=== PATIENT | male | born 1950 | race Caucasian/White ===

== ENCOUNTER 2018-08-01 13:08 | Outpatient (REF) | payer MEDICARE, SELFPAY ==
[2018-08-01 13:48] LABS: Anion Gap 6.7 mmol/L (3-11); BUN 23 mg/dL (7-18); CO2 30.3 mmol/L (21.0-32.0); CREATININE 1.22 mg/dL (0.70-1.30); Calcium 9.3 mg/dL (8.5-10.1); Chloride 102 mmol/L (98-107); Estimated GFR 59.25 (mL/min/1.73m2); Glucose 88 mg/dL (70-100); Potassium 5.1 mmol/L (3.5-5.1); Sodium 139 mmol/L (136-145)
== END 2018-08-01 13:28 ==
LOC: NCHCN 13:08
PROVIDERS: PCP Nurse Practitioner Family; Visit Provider Nurse Practitioner Family
DX: B37.2 Candidiasis of skin and nail (principal); E78.5 Hyperlipidemia, unspecified; I10 Essential (primary) hypertension; F10.10 Alcohol abuse, uncomplicated
CPT/HCPCS: 80048

== ENCOUNTER 2019-03-06 09:34 | Outpatient (REF) | payer MEDICARE, SELFPAY ==
[2019-03-06 12:53] LABS: BUN 21 mg/dL (7-18); CREATININE 1.05 mg/dL (0.70-1.30); Calculated LDL 233 mg/dL; Chloride 105 mmol/L (98-107); Cholesterol 308 mg/dL (50-200); Glucose 99 mg/dL (70-100); HDL Cholesterol 44 mg/dL (40-60); Potassium 4.5 mmol/L (3.5-5.1); Sodium 141 mmol/L (136-145); Triglyceride 156 mg/dL (30-150)
[2019-03-07 10:46] LABS: Hepatitis C Ab w Rflx HCV PCR Negative (NEGAT)
[2019-03-07 11:51] LABS: Lyme Ab w Rflx to Lyme Confirm Negative
== END 2019-03-06 09:54 ==
LOC: NCHCN 09:34
PROVIDERS: PCP Nurse Practitioner Family; Visit Provider Nurse Practitioner Family
DX: E78.5 Hyperlipidemia, unspecified (principal); I10 Essential (primary) hypertension; Z11.59 Encounter for screening for other viral diseases; W57.XXXA Bitten or stung by nonvenomous insect and other nonvenomous arthropods, initial encounter; T14.8XXA Other injury of unspecified body region, initial encounter
CPT/HCPCS: 80048; 80061; 83721; 86803; 87798; 86618

== ENCOUNTER 2019-07-24 08:38 | Outpatient (REF) | payer MEDICARE, SELFPAY ==
[2019-07-24 12:32] LABS: ALT 37 U/L (16-63); AST 34 U/L (15-37); Albumin 3.7 g/dL (3.4-5.0); Alkaline Phosphatase 66 U/L (46-116); Anion Gap 7.9 mmol/L (3-11); BUN 22 mg/dL (7-18); Bilirubin, Total 0.6 mg/dL (0.2-1.0); CO2 30.1 mmol/L (21.0-32.0); CREATININE 1.13 mg/dL (0.70-1.30); Calculated LDL 108 mg/dL; Chloride 104 mmol/L (98-107); Cholesterol 182 mg/dL (<200); Glucose 85 mg/dL (74-106); HDL Cholesterol 46 mg/dL (40-60); Potassium 4.9 mmol/L (3.5-5.1); Sodium 142 mmol/L (136-145); Triglyceride 143 mg/dL (30-150)
== END 2019-07-24 08:58 ==
LOC: NCHCN 08:38
PROVIDERS: PCP Nurse Practitioner Family; Visit Provider Nurse Practitioner Family
DX: E78.5 Hyperlipidemia, unspecified (principal)
CPT/HCPCS: 80053; 80061

== ENCOUNTER 2020-07-21 10:53 | Outpatient (REF) | payer MEDICARE, SELFPAY ==
[2020-07-21 21:48] LABS: ALT 35 U/L (16-63); AST 33 U/L (15-37); Albumin 4.1 g/dL (3.4-5.0); Alkaline Phosphatase 74 U/L (46-116); Anion Gap 8.5 mmol/L (3-11); BUN 22 mg/dL (7-18); Bilirubin, Total 0.5 mg/dL (0.2-1.0); CO2 27.5 mmol/L (21.0-32.0); CREATININE 1.23 mg/dL (0.70-1.30); Chloride 104 mmol/L (98-107); Estimated GFR 58.34 (mL/min/1.73m2); Glucose 99 mg/dL (74-106); Potassium 4.6 mmol/L (3.5-5.1); Sodium 140 mmol/L (136-145); Total Protein 7.4 g/dL (6.4-8.2)
== END 2020-07-21 11:13 ==
LOC: NCHCN 10:53
PROVIDERS: PCP Nurse Practitioner Family; Visit Provider Nurse Practitioner Family
DX: E78.5 Hyperlipidemia, unspecified (principal); I10 Essential (primary) hypertension
CPT/HCPCS: 80053

== ENCOUNTER 2020-12-01 11:12 | Outpatient (CLI) | payer MEDICARE, SELFPAY ==
--- NOTE | 2020-12-01 14:19 | DI.RAD_ITS ---
EXAM: XR FOOT LT COMPLETE CLINICAL HISTORY: LT TOE PAIN, M79.675. TECHNIQUE: 2D digital imaging was performed. COMPARISON: No exams were available for comparison FINDINGS: There is no evidence of fracture or diastasis of the Lisfranc joint. No radiopaque foreign body. No osseous lesions. Bone density is normal. IMPRESSION: No significant radiographic findings in the left foot. DATA REPOSITORY: RADIATION DOSE DELIVERED:
== END 2020-12-01 11:32 ==
PROVIDERS: PCP Nurse Practitioner Family; Visit Provider Family Medicine
DX: M79.675 Pain in left toe(s) (principal)
CPT/HCPCS: 73630

== ENCOUNTER 2020-12-01 14:26 | Outpatient (CLI) | payer MEDICARE, SELFPAY ==
[2020-12-01 14:55] LABS: C-Reactive Protein 0.14 mg/dL (0.0-0.3); Uric Acid 7.7 mg/dL (3.5-7.2)
[2020-12-01 17:42] LABS: Anion Gap 6.5 mmol/L (3-11); BUN 26 mg/dL (7-18); CO2 30.5 mmol/L (21.0-32.0); CREATININE 1.4 mg/dL (0.70-1.30); Calcium 9.5 mg/dL (8.5-10.1); Chloride 104 mmol/L (98-107); Estimated GFR 50.25 (mL/min/1.73m2); Glucose 102 mg/dL (74-106); Potassium 5.1 mmol/L (3.5-5.1); Sodium 141 mmol/L (136-145)
== END 2020-12-01 14:27 | disposition home or self-care (01) ==
LOC: NCHCO 14:26 → NCHCN 19:17
PROVIDERS: PCP Nurse Practitioner Family; Visit Provider Family Medicine
DX: M79.675 Pain in left toe(s) (principal)
CPT/HCPCS: 36415; 80048; 84550; 86140

== ENCOUNTER 2021-07-21 08:52 | Outpatient (REF) | payer MEDICARE, SELFPAY ==
[2021-07-21 14:51] LABS: ALT 31 U/L (16-63); AST 28 U/L (15-37); Albumin 3.6 g/dL (3.4-5.0); Alkaline Phosphatase 82 U/L (46-116); Anion Gap 5.2 mmol/L (3-11); BUN 20 mg/dL (7-18); Bilirubin, Total 0.6 mg/dL (0.2-1.0); CO2 31.8 mmol/L (21.0-32.0); CREATININE 1.1 mg/dL (0.70-1.30); Chloride 105 mmol/L (98-107); Glucose 87 mg/dL (74-106); Potassium 5.1 mmol/L (3.5-5.1); Sodium 142 mmol/L (136-145)
== END 2021-07-21 08:53 | disposition home or self-care (01) ==
LOC: NCHCN 08:52
PROVIDERS: PCP Nurse Practitioner Family; Visit Provider Nurse Practitioner Family
DX: I10 Essential (primary) hypertension (principal); E78.5 Hyperlipidemia, unspecified; N28.9 Disorder of kidney and ureter, unspecified
CPT/HCPCS: 80053

== ENCOUNTER 2022-07-19 15:39 | Outpatient (REF) | payer MEDICARE, SELFPAY ==
[2022-07-19 15:08] LABS: Anion Gap 3.9 mmol/L (3-11); BUN 26 mg/dL (7-18); CO2 32.1 mmol/L (21.0-32.0); CREATININE 1.2 mg/dL (0.70-1.30); Calcium 9.1 mg/dL (8.5-10.1); Chloride 104 mmol/L (98-107); Estimated GFR 64.65 (mL/min/1.73m2); Glucose 90 mg/dL (74-106); Potassium 4.7 mmol/L (3.5-5.1); Sodium 140 mmol/L (136-145)
== END 2022-07-19 15:40 | disposition home or self-care (01) ==
LOC: NCHCN 15:39
PROVIDERS: PCP Nurse Practitioner Family; Visit Provider Nurse Practitioner Family
DX: I10 Essential (primary) hypertension (principal); E78.5 Hyperlipidemia, unspecified; N28.9 Disorder of kidney and ureter, unspecified; K30 Functional dyspepsia
CPT/HCPCS: 80048

== ENCOUNTER → 2023-04-20 01:11 | Outpatient (CLI) | payer MEDICARE, SELFPAY ==
--- NOTE | 2023-04-20 07:30 | DI.US_ITS ---
APPROVED REPORT EXAM: Comprehensive 2D, Doppler, and color-flow Echocardiogram Patient Location: Out-Patient Press Set Up Person: Ncikie Meneses RDCS (AE) Indications: Ascending aortic aneurysm, Traumatic dissection of aorta Other Information Study Quality: Adequate Conclusion Normal left ventricular wall thickness and chamber size. Ejection fraction is 60%. Wall motion is n ormal Normal right ventricular size and systolic function Left atrium is mildly dilated. Right atrial size is normal Trileaflet aortic valve without stenosis or regurgitation Normal mitral valve with mild regurgitation Normal tricuspid valve with trace to mild regurgitation. Estimated right ventricular systolic pressu re is 32 mmHg Dilated ascending aorta measuring 3.96 cm Wall motion Left Ventricle The left ventricle is normal size. The left ventricular systolic function is normal. The left ventric ular ejection fraction is within the normal range. There is normal left ventricular wall thickness. T here is normal LV segmental wall motion. There is no ventricular septal defect visualized. LVEF is 60 %. Right Ventricle The right ventricle is normal size. The right ventricular systolic function is normal. Atria Left atrium is mildly dilated. The right atrium size is normal. The interatrial septum is intact with no evidence for an atrial septal defect. Aortic Valve The aortic valve is normal in structure. Aortic valve is trileaflet. There is no aortic valvular sten osis. No aortic regurgitation is present. Mitral Valve The mitral valve is normal in structure. No evidence of mitral valve stenosis. Mild mitral regurgitat ion. Tricuspid Valve The tricuspid valve is normal in structure. There is no tricuspid valve stenosis. Trace to mild tricu spid regurgitation. The RVSP is 32.4mmHg. Pulmonic Valve The pulmonary valve is normal in structure. There is no pulmonic valvular stenosis. Trace pulmonic re gurgitation. Great Vessels The aortic root is normal in size. The ascending aorta is moderately dilated. Aortic arch is normal in caliber. IVC is normal in size and collapses >50% with inspiration. Pericardium There is no pericardial effusion. 2D Dimensions IVSD d PLAX 1.15 cm M: 0.6-1.2 LVPW d PLAX 1.11 cm M: 0.6 - 1.2 LVID d PLAX 4.43 cm M: 4.2 - 5.8 LVDs 3.10 cm M: 2.5 - 4.0 Ao Root d 3.18 cm M: 3.1 - 3.7 RA Area A4C 13.74 cm2 Ao Asc Diam d 3.96 cm M: 2.6 - 3.4 LV EF Solitarioichbob 57.2 % FS 29.85 % M-Mode TAPSE 2.31 cm (M/F) >1.7 LV Diastology MV E' medial 0.082 (>0.07 m/s) E/A Ratio 1.4 LV E/e MED 10.24 (<14) MV E Vmax 0.84 (0.4-1.3 m/s) MV E' lateral 0.097 (>0.1 m/s) MV A Vmax 0.60 (0.4-1.3 m/s) LV E/e LAT 8.66 (<14) MV E/E' medial 10.24 MV E/E' lateral 8.66 MV (E/E' average) 9.38 Aortic Valve LVOT Vmax 1.16 m/s AoV Area Vmax 2.48 cm2 LVOT Peak Grad 5.4 mmHg LVOT Mean Grad 2.6 mmHg LVOT Diam s 2.00 cm AoV Vmax 1.50 m/s Velocity Ratio 0.77 AoV Peak Grad 8.9 mmHg LVOT SV 75.55 mL AoV Mean Grad 5.3 mmHg AoV Area VTI 2.23 cm2 Mitral Valve MV DT 225 (160-240 msec) MV Vmax TIPS 0.69 m/s MV Mean Grad 0.8 (<2mmHg) MV VTI 0.239 m Pulmonary Valve PV Mean Grad 1.7 mmHg RVOT Peak Gr. 1.89 mmHg RVOT Mean Gr. 0.95 mmHg RVOT VTI 0.153 m RVOT Vmax 0.69 m/s Tricuspid Valve TR Peak Grad 29.4 mmHg TR Vmax 2.71 m/s RA Pressure 3.00 mmHg RVSP (TR) 32.4 mmHg
== END ==
PROVIDERS: PCP Nurse Practitioner Family; Visit Provider Nurse Practitioner Family
DX: I71.00 Dissection of unspecified site of aorta (principal)
CPT/HCPCS: 93306

== ENCOUNTER 2024-02-20 15:08 | Outpatient (REF) | payer MEDICARE, SELFPAY ==
[2024-02-20 15:15] LABS: ALT 32 U/L (16-63); AST 26 U/L (15-37); Albumin 3.5 g/dL (3.4-5.0); Alkaline Phosphatase 132 U/L (46-116); Anion Gap 10.2 mmol/L (3-11); BUN 27 mg/dL (7-18); Bilirubin, Total 0.6 mg/dL (0.2-1.0); CO2 25.8 mmol/L (21.0-32.0); CREATININE 1.2 mg/dL (0.70-1.30); Calcium 9.3 mg/dL (8.5-10.1); Calculated LDL 93 mg/dL (<100); Chloride 104 mmol/L (98-107); Cholesterol 169 mg/dL (<200); Estimated GFR 63.85 (mL/min/1.73m2); Glucose 116 mg/dL (74-106); HDL Cholesterol 62 mg/dL (40-60); Potassium 4.9 mmol/L (3.5-5.1); Sodium 140 mmol/L (136-145); Total Protein 7.7 g/dL (6.4-8.2); Triglyceride 74 mg/dL (<150)
== END 2024-02-20 15:09 | disposition home or self-care (01) ==
LOC: NCHCN 15:08
PROVIDERS: PCP Nurse Practitioner Family; Visit Provider Nurse Practitioner Family
DX: E78.5 Hyperlipidemia, unspecified (principal); I10 Essential (primary) hypertension
CPT/HCPCS: 80053; 80061

== ENCOUNTER 2024-12-25 01:23 | Outpatient (CLI) | payer MEDICARE, SELFPAY ==
--- NOTE | 2024-12-25 08:30 | DI.US_ITS ---
APPROVED REPORT EXAM: Comprehensive 2D, Doppler, and color-flow Echocardiogram Patient Location: Out-Patient Surgeon Partner: Robert Leger RDCS (AE) Indications: Aortic dissection Conclusion Normal left ventricular wall thickness and chamber size. Ejection fraction is 60 to 65%. Wall motio n is normal Normal right ventricular size and function Both atria are moderately enlarged Trileaflet aortic valve without stenosis or regurgitation Normal mitral valve with mild regurgitation Normal tricuspid valve with mild regurgitation. Dilated ascending aorta measuring 4.19 cm Wall motion Left Ventricle The left ventricle is normal size. The left ventricular systolic function is normal. The left ventric ular ejection fraction is within the normal range. There is normal left ventricular wall thickness. T here is normal LV segmental wall motion. There is no ventricular septal defect visualized. LVEF is 60 -65%. Right Ventricle The right ventricle is normal size. The right ventricular systolic function is normal. Atria Left atrium is moderately dilated. Right atrium is moderately dilated. The interatrial septum is inta ct with no evidence for an atrial septal defect. Aortic Valve The aortic valve is normal in structure. Aortic valve is trileaflet. There is no aortic valvular sten osis. No aortic regurgitation is present. Mitral Valve The mitral valve is normal in structure. No evidence of mitral valve stenosis. Mild mitral regurgitat ion. Tricuspid Valve The tricuspid valve is normal in structure. There is no tricuspid valve stenosis. Mild tricuspid regu rgitation. Pulmonic Valve The pulmonary valve is normal in structure. There is no pulmonic valvular stenosis. Trace pulmonic re gurgitation. Great Vessels The aortic root is borderline normal in size. The ascending aorta is moderately dilated. Aortic arch is borderline normal in caliber. IVC is normal in size and collapses >50% with inspiration. Pericardium There is no pericardial effusion. 2D Dimensions IVSD d PLAX 1.02 cm M: 0.6-1.2 Ao Root d 3.71 cm M: 3.1 - 3.7 LVPW d PLAX 0.83 cm M: 0.6 - 1.2 Ao Asc Diam d 4.17 cm M: 2.6 - 3.4 LVID d PLAX 5.21 cm M: 4.2 - 5.8 LVDs 3.39 cm M: 2.5 - 4.0 LV EF Teichholz 63.6 % FS 34.82 % LV EDV (Teich) 129.9 mL LV ESV (Teich) 47.2 mL Stroke Vol Index (Teich) 45.94 M-Mode TAPSE 1.74 cm (M/F) >1.7 Auto EF LV EDV A4C 87.4 mL LV EDV A2C 113.1 mL LV EDV BP 100.7 mL LV ESV A4C 34.8 mL LV ESV A2C 40.8 mL LV ESV BP 37.0 mL LVEF(%) A4C 60.2 % LVEF(%) A2C 63.9 % LVEF(%) BP 63.2 % LV SV A4C 52.6 ml LV SV A2C 72.3 ml LV SV BP 63.6 ml LV CO A4C 1.7 L/min LV CO A2C 2.6 L/min LV CO BP 2.1 L/min HR A4C 31.83 BPM HR A2C 35.36 BPM LV EDV Index (BP) LA Volume LA Length A4C 6.5 cm LA Length A2C 5.7 cm LA Area A4C s 24.51 cm2 LA Area A2C s 18.58 cm2 LA Vol A4C A-L 78.88 mL LA Vol A2C A-L 51.51 mL LA Vol Biplane A-L 68.0 mL LA Vol/BSA A4C A-L LA Vol/BSA A2C A-L LA Vol/BSA BP A-L 37.8 mL/m2 LA Vol A4C MOD 81.1 mL LA Vol A2C MOD 49.3 mL LA Vol BP MOD 66.0 mL RA Volume RA Area A4C 16.8 cm2 RA ESV A4C (A-L) 50.9mL RA Vol/BSA A4C A-L RA Length A4C 4.7 cm RA ESV A4C (MOD) 46.5mL LV Diastology MV E' medial 0.071 (>0.07 m/s) MV E Vmax 0.73 (0.4-1.3 m/s) MV E/E' MED 10.33 (<14) MV A Vmax 0.55 (0.4-1.3 m/s) MV E' lateral 0.141 (>0.1 m/s) E/A Ratio 1.3 MV E/E' LAT 5.21 (<14) MV E' Average 0.106 m/s MV E/E'(average) 6.93 Aortic Valve AoV Vmax 1.15 m/s LVOT Vmax 0.85 m/s AoV Peak Grad 5.3 mmHg LVOT Peak Grad 2.9 mmHg AoV Area (Vmax) 2.24 cm2 LVOT VTI 0.200 m AoV VTI 0.280 m LVOT Mean Grad 1.3 mmHg AoV Mean Florin. 0.77 m/s LVOT SV 60.70 mL AoV Mean Grad 2.7 mmHg LVOT Diam s 1.95 cm AoV Area (VTI) 2.17 cm2 AV Regurg Peak Gr. 5.33 mmHg Velocity Ratio 0.74 Mitral Valve MV DT 203 (160-240 msec) Tricuspid Valve TV S' 0.15 m/s
== END 2024-12-25 01:43 ==
LOC: DI 01:23
PROVIDERS: PCP Nurse Practitioner Family; Visit Provider Internal Medicine Cardiovascular Disease
DX: I36.1 Nonrheumatic tricuspid (valve) insufficiency (principal); I71.00 Dissection of unspecified site of aorta
CPT/HCPCS: 93306

== ENCOUNTER 2025-01-24 09:34 | Outpatient (REF) | payer MEDICARE, SELFPAY ==
[2025-01-24 14:58] LABS: ALT 29 U/L (16-63); AST 21 U/L (15-37); Albumin 3.4 g/dL (3.4-5.0); Alkaline Phosphatase 107 U/L (46-116); Anion Gap 7.3 mmol/L (3-11); BUN 42 mg/dL (7-18); Bilirubin, Total 0.6 mg/dL (0.2-1.0); CO2 28.7 mmol/L (21.0-32.0); CREATININE 1.7 mg/dL (0.70-1.30); Calcium 9.1 mg/dL (8.5-10.1); Calculated LDL 106 mg/dL (<100); Chloride 103 mmol/L (98-107); Cholesterol 185 mg/dL (<200); Estimated GFR 41.78 (mL/min/1.73m2); Glucose 81 mg/dL (74-106); HDL Cholesterol 54 mg/dL (>or=40); Magnesium 2.1 mg/dL (1.8-2.4); Potassium 4.3 mmol/L (3.5-5.1); Sodium 139 mmol/L (136-145); TSH (W/Ref FT4) 1.91 uIU/mL (0.36-3.74); Total Protein 7.3 g/dL (6.4-8.2); Triglyceride 126 mg/dL (<150)
[2025-01-24 15:16] LABS: GGT 50 U/L (15-85)
== END 2025-01-24 09:35 | disposition home or self-care (01) ==
LOC: NCHCN 09:34
PROVIDERS: PCP Nurse Practitioner Family; Visit Provider Nurse Practitioner Family
DX: I10 Essential (primary) hypertension (principal); R74.8 Abnormal levels of other serum enzymes; R07.89 Other chest pain
CPT/HCPCS: 80053; 80061; 82977; 83735; 84443

== ENCOUNTER 2025-01-25 10:30 | Outpatient (CLI) | payer MEDICARE, SELFPAY | END 2025-01-25 10:31 | disposition home or self-care (01) | PROVIDERS: PCP Nurse Practitioner Family; Visit Provider Family Medicine | DX: I51.7 Cardiomegaly (principal) | CPT/HCPCS: 93246 ==

== ENCOUNTER 2025-02-18 00:02 | Outpatient (CLI) | payer MEDICARE, SELFPAY ==
--- NOTE | 2025-02-18 | DI.US_ITS ---
Exam(s) US AAA SCREENING EXAM: US AAA SCREENING CLINICAL HISTORY: Family h/o cardiovascular disease, Z82.49-family h/o ischemic heart disease COMPARISON: There are no priors for comparison. FINDINGS: Abdominal Aorta: Proximal: 2.8-3.3 cm proximal to the celiac artery near the diaphragmatic hiatus. Mid: 2.9 x 2.5 cm Distal: 2.1 x 2.2 cm Iliac's: Right: 1.4 x 1.7 cm Left: 1.3 x 1.4 cm Mild atherosclerotic plaque is noted. IMPRESSION: Ectasia of the proximal abdominal aorta. DATA REPOSITORY:
== END 2025-02-18 00:22 ==
LOC: DI 00:02
PROVIDERS: PCP Nurse Practitioner Family; Visit Provider Nurse Practitioner Family
DX: Z13.6 Encounter for screening for cardiovascular disorders (principal); Z82.49 Family history of ischemic heart disease and other diseases of the circulatory system
CPT/HCPCS: 76706

== ENCOUNTER 2025-02-21 14:08 | Outpatient (CLI) | payer MEDICARE, SELFPAY ==
--- NOTE | 2025-02-21 14:36 | W.CARDEVENT ---
Date of service: 02/21/25 Time of Service: 14:36 Cardiac Event Recorder Referring Provider:: Gordo Madden Indications:: Palpitations Cardiac Event Note: This is a cardiac event monitor. Patient was monitored for 12 days and 19 hours. Rhythm throughout was sinus with an average heart rate of 65. Minimum was 38, maximum 130. There were very rare isolated ventricular ectopic beats. There were occasional atrial premature beats. Self-limited atrial runs occurred. These were generally 3-5 beats in duration. There was no atrial fibrillation, no high-grade AV block, no pauses greater than 3 seconds. Symptoms were reported. The majority correlated to sinus rhythm, once or twice to an atrial premature beat
== END 2025-02-21 14:09 | disposition home or self-care (01) ==
LOC: CARDOPNVT 14:08
PROVIDERS: PCP Nurse Practitioner Family; Visit Provider Internal Medicine Cardiovascular Disease
DX: R00.2 Palpitations (principal); I49.1 Atrial premature depolarization
CPT/HCPCS: 93248

== ENCOUNTER 2025-03-14 11:28 | Outpatient (REF) | payer MEDICARE, SELFPAY ==
[2025-03-14 15:56] LABS: Anion Gap 9.2 mmol/L (3-11); BUN 36 mg/dL (7-18); CO2 25.8 mmol/L (21.0-32.0); Calcium 9.3 mg/dL (8.5-10.1); Chloride 101 mmol/L (98-107); Estimated GFR 57.65 (mL/min/1.73m2); Glucose 96 mg/dL (74-106); Potassium 5.1 mmol/L (3.5-5.1); Sodium 136 mmol/L (136-145)
== END 2025-03-14 11:29 | disposition home or self-care (01) ==
LOC: NCHCN 11:28
PROVIDERS: PCP Nurse Practitioner Family; Visit Provider Nurse Practitioner Family
DX: N18.31 Chronic kidney disease, stage 3a (principal)
CPT/HCPCS: 80048

== ENCOUNTER 2025-08-27 09:07 | Outpatient (REF) | payer MEDICARE, SELFPAY ==
[2025-08-27 15:44] LABS: Abs Immature Grans 0.01 10^3/uL (0.0-0.06); HCT 36.7 % (40.0-50.0); HGB 12.1 g/dL (13.5-17.5); Immature Grans % 0.1 %; MCH 30.3 pg (27.0-33.0); MCHC 33.0 % (32.0-36.0); MCV 92 fL (80-95); MPV 10.0 fL (8.0-11.0); Platelet Count 284 10^3/uL (130-400); RBC 3.99 10^6/uL (4.36-5.78); RDW 12.5 % (11.8-14.1); RDW-SD 42.7 fL; WBC 6.93 10^3/uL (4.4-10.8)
[2025-08-27 15:58] LABS: ALT 29 U/L (10-49); AST 43 U/L (<34); Albumin 4.1 g/dL (3.2-5.0); Alkaline Phosphatase 95 U/L (46-116); Anion Gap 8.9 mmol/L (3-11); BUN 30 mg/dL (9-23); Bilirubin, Total 0.5 mg/dL (0.2-1.2); CO2 27.1 mmol/L (20.0-31.0); Calcium 9.5 mg/dL (8.3-10.6); Chloride 106 mmol/L (98-107); Glucose 93 mg/dL (74-106); Potassium 4.8 mmol/L (3.5-5.1); Sodium 142 mmol/L (136-145); Total Protein 7.3 g/dL (5.7-8.2)
== END 2025-08-27 09:08 | disposition home or self-care (01) ==
LOC: NCHCN 09:07
PROVIDERS: PCP Nurse Practitioner Family; Visit Provider Nurse Practitioner Family
DX: L28.2 Other prurigo (principal)
CPT/HCPCS: 80053; 85025